=== PATIENT | female | born 1955 | race African-American/Black ===

== ENCOUNTER 2023-02-02 06:57 | Day surgery (SDC) | payer MEDICARE, OTHER ==
[~2023-02-02] VITALS: Ht 172.7 cm; Wt 77.2 kg
[~2023-02-02 06:57] MED LIST: ALBU8HFA4 IH; BECL8.7A5 IH; CHOL400T56 PO; FAMO20 PO; MONT-35 PO; VITA1CAP PO
[2023-02-02] MEDS ORDERED: LIDOCAINE 4% 50 ML SOLUTION TP ONE (06:58)
[2023-02-02] MEDS ORDERED: BENZOCAINE 20% 50 MCG/SPRAY 57 GM TP ONE (06:58)
[2023-02-02] MEDS ORDERED: LIDOCAINE 2% 11 ML JELLY TP ONE (06:58)
[2023-02-02] MEDS ORDERED: ALBUTEROL SULFATE 2.5 MG/0.5 ML NEB SOLUTION NEB ONE (06:58)
[2023-02-02] MEDS ORDERED: SODIUM CHLORIDE 0.9% 1,000 ML ONE (07:01)
[2023-02-02] MEDS ORDERED: ASCO500 PO (07:54)
[2023-02-02] MEDS ORDERED: SIMV-259 PO (07:54)
[2023-02-02] MEDS ORDERED: DIPH-1080 PO (07:54)
[2023-02-02] MEDS ORDERED: CITA-144 PO (07:54)
[2023-02-02] MEDS ORDERED: MIDAZOLAM HCL 2 MG/2 ML VIAL ONE (08:21)
[2023-02-02] MEDS ORDERED: FentaNYL CITRATE PF 100 MCG/2 ML VIAL ONE (08:21)
[2023-02-02] MEDS ORDERED: SODIUM CHLORIDE 0.9% 1,000 ML IV ONE (08:45)
[2023-02-02] MEDS ORDERED: MethylPREDNISolone SOD SUCC 125 MG/2 ML VIAL IVP ONE (09:30)
[2023-02-02] MEDS ORDERED: MethylPREDNISolone SOD SUCC 125 MG/2 ML VIAL ONE (09:40)
[2023-02-02 09:53] VITALS: PULSE 75; RESP 18; O2SAT 98
== END 2023-02-02 11:33 | disposition home or self-care (01) ==
LOC: SURGERY 06:57
PROVIDERS: ATTEND Internal Medicine Critical Care Medicine
DX: J38.4 Edema of larynx (principal); B37.0 Candidal stomatitis; J43.9 Emphysema, unspecified; Z88.6 Allergy status to analgesic agent; Z88.2 Allergy status to sulfonamides; Z98.890 Other specified postprocedural states
CPT/HCPCS: 31623; 31624; 88112; 87206; 87101; 87220; 87070; 94640; 71045; 87015; J3010; J2250; J2930; Q9967; J7030; J7613; Z7610

== ENCOUNTER 2023-12-19 07:00 | Day surgery (SDC) | payer OTHER ==
[~2023-12-19] VITALS: Ht 172.7 cm; Wt 77.6 kg
[~2023-12-19 07:00] MED LIST changes: +ASCO500 PO; -BECL8.7A5 IH; +CITA-144 PO; +DIPH-1237 PO; +SIMV-259 PO; +SODIUM CHLORIDE 0.9% 1,000 ML ONE
[2023-12-19] MEDS ORDERED: BENZOCAINE 20% 50 MCG/SPRAY 57 GM TP ONE (07:01)
[2023-12-19] MEDS ORDERED: LIDOCAINE 4% 50 ML SOLUTION TP ONE (07:01)
[2023-12-19] MEDS ORDERED: LIDOCAINE 2% 11 ML JELLY TP ONE (07:01)
[2023-12-19] MEDS ORDERED: ALBUTEROL SULFATE 2.5 MG/0.5 ML NEB SOLUTION NEB ONE (07:01)
[2023-12-19] MEDS: SODIUM CHLORIDE 0.9% 1,000 ML IV ONE (08:14)
[2023-12-19] MEDS ORDERED: FentaNYL CITRATE PF 100 MCG/2 ML VIAL ONE (08:32)
[2023-12-19] MEDS ORDERED: MIDAZOLAM HCL 2 MG/2 ML VIAL ONE (08:32)
[2023-12-19] MEDS: 0.9% SODIUM CHLORIDE 1,000 ML BAG IV ONE (09:23)
[2023-12-19 09:25] VITALS: PULSE 73; RESP 18; O2SAT 92
[2023-12-19] MEDS ORDERED: MethylPREDNISolone SOD SUCC 125 MG/2 ML VIAL ONE (09:42)
[2023-12-19] MEDS: MethylPREDNISolone SOD SUCC 125 MG/2 ML VIAL IVP ONE (10:09)
== END 2023-12-19 11:55 | disposition home or self-care (01) ==
LOC: SURGERY 07:00
PROVIDERS: ATTEND Internal Medicine Critical Care Medicine
DX: R05.3 Chronic cough (principal); J38.4 Edema of larynx; B37.0 Candidal stomatitis; R06.2 Wheezing; R04.2 Hemoptysis; J98.09 Other diseases of bronchus, not elsewhere classified; J84.10 Pulmonary fibrosis, unspecified; J98.8 Other specified respiratory disorders; R91.8 Other nonspecific abnormal finding of lung field; M47.814 Spondylosis without myelopathy or radiculopathy, thoracic region; F32.A Depression, unspecified; J44.9 Chronic obstructive pulmonary disease, unspecified; E78.00 Pure hypercholesterolemia, unspecified; Z85.21 Personal history of malignant neoplasm of larynx; Z79.899 Other long term (current) drug therapy; Z87.891 Personal history of nicotine dependence; Z90.49 Acquired absence of other specified parts of digestive tract; Z98.818 Other dental procedure status; Z98.890 Other specified postprocedural states; Z88.2 Allergy status to sulfonamides
CPT/HCPCS: 31623; 87206; 87101; 87220; 87070; 88108; 31624; 71045; 87015; J3010; J2250; J2919; J7030; J7613; Z7610

== ENCOUNTER 2024-07-18 06:55 | Day surgery (SDC) | payer OTHER ==
[2024-07-18] MEDS ORDERED: BENZOCAINE 20% 50 MCG/SPRAY 57 GM TP ONE (06:56)
[2024-07-18] MEDS ORDERED: ALBUTEROL SULFATE 2.5 MG/0.5 ML NEB SOLUTION NEB ONE (06:56)
[2024-07-18] MEDS ORDERED: LIDOCAINE 2% 11 ML JELLY TP ONE (06:56)
[2024-07-18] MEDS ORDERED: FLUT1BLS15 IH (07:11)
[2024-07-18] MEDS: SODIUM CHLORIDE 0.9% 1,000 ML IV ONE (07:50)
[2024-07-18] MEDS ORDERED: MIDAZOLAM HCL 2 MG/2 ML VIAL ONE (07:56)
[2024-07-18] MEDS ORDERED: FentaNYL CITRATE PF 100 MCG/2 ML VIAL ONE (07:56)
[2024-07-18 10:30] VITALS: PULSE 74; RESP 15; O2SAT 99
[2024-07-18] MEDS ORDERED: MethylPREDNISolone SOD SUCC 125 MG/2 ML VIAL ONE (10:48)
[2024-07-18] MEDS: MethylPREDNISolone SOD SUCC 125 MG/2 ML VIAL IVP ONE (10:50)
== END 2024-07-18 11:45 | disposition home or self-care (01) ==
LOC: SURGERY 06:55
PROVIDERS: ATTEND Internal Medicine Critical Care Medicine
DX: J38.4 Edema of larynx (principal); B37.0 Candidal stomatitis; F32.A Depression, unspecified; Z88.2 Allergy status to sulfonamides; Z88.6 Allergy status to analgesic agent; Z98.890 Other specified postprocedural states; J44.9 Chronic obstructive pulmonary disease, unspecified; Z90.12 Acquired absence of left breast and nipple; Z79.899 Other long term (current) drug therapy
CPT/HCPCS: 31623; 87206; 87101; 87220; 87070; 88108; 31624; 94640; 71045; 87015; J3010; J2250; J2919; J7030; J7613

== ENCOUNTER 2025-03-13 06:02 | Day surgery (SDC) | payer OTHER ==
[~2025-03-13] VITALS: Ht 170.2 cm; Wt 73.2 kg
[~2025-03-13 06:02] MED LIST changes: +FLUT1BLS15 IH; -SODIUM CHLORIDE 0.9% 1,000 ML ONE
[2025-03-13] MEDS ORDERED: SODIUM CHLORIDE 0.9% 1,000 ML ONE (06:52)
[2025-03-13] MEDS: SODIUM CHLORIDE 0.9% 1,000 ML IV ONE (07:37)
[2025-03-13] MEDS ORDERED: FentaNYL CITRATE PF 100 MCG/2 ML VIAL ONE (07:59)
[2025-03-13] MEDS ORDERED: MIDAZOLAM HCL 2 MG/2 ML VIAL ONE (07:59)
[2025-03-13 09:28] VITALS: PULSE 66; RESP 20; O2SAT 99
[2025-03-13] MEDS ORDERED: BENZOCAINE 20% 50 MCG/SPRAY 57 GM ONE (16:57)
[2025-03-13] MEDS ORDERED: LIDOCAINE 2% 11 ML JELLY ONE (16:57)
[2025-03-13] MEDS ORDERED: LIDOCAINE 4% 50 ML SOLUTION ONE (16:57)
[2025-03-13] MEDS ORDERED: ALBUTEROL SULFATE 2.5 MG/0.5 ML NEB SOLUTION NEB ONE (16:57)
== END 2025-03-13 13:05 | disposition home or self-care (01) ==
LOC: SDS 06:02
PROVIDERS: ATTEND Internal Medicine Critical Care Medicine
DX: R05.3 Chronic cough (principal); R06.2 Wheezing; R49.0 Dysphonia; R04.2 Hemoptysis; R91.8 Other nonspecific abnormal finding of lung field; J47.9 Bronchiectasis, uncomplicated; J38.4 Edema of larynx; B37.0 Candidal stomatitis; J43.9 Emphysema, unspecified; Z98.818 Other dental procedure status
CPT/HCPCS: 31623; 31624; 71045; 87015; 87070; 87101; 87206; 87220; 88108; J2250; J2919; J3010; J7030; J7613; Z7610